=== PATIENT | female | born 1980 | race Caucasian/White ===

== ENCOUNTER 2017-01-31 07:46 | Day surgery (SDC) | payer OTHER ==
[~2017-01-31 07:46] MED LIST: Lactated Ringers 1,000 ML IV SCH; Lidocaine 1%/Sod Bicarbonate in NS 8.4% 1 ML Syringe IV PRN; Sodium Chloride 0.9% 10 ML Syringe FLUSH PRN
[2017-01-31] MEDS ORDERED: Midazolam 1 MG/ML 2 ML SDV ONE ×2 (08:03→10:02)
[2017-01-31] MEDS ORDERED: Ondansetron 4 MG/2 ML SDV ONE (08:03)
[2017-01-31] MEDS ORDERED: Propofol 200 MG/20 ML SDV ONE ×2 (08:03→10:05)
[2017-01-31] MEDS ORDERED: Lidocaine 1% 4 ML ONE (08:04)
[2017-01-31] MEDS ORDERED: fentaNYL 250 MCG/5 ML SDV ONE (08:04)
[2017-01-31] MEDS ORDERED: ceFAZolin 1 GM Vial ONE (08:06)
--- NOTE | 2017-01-31 08:48 | PCM.PREANE ---
Preanesthetic Assessment - Anesthesia/Transfusion/Family Hx Anesthesia History: Prior Anesthesia Without Reaction Family History of Anesthesia Reaction: No Transfusion History: No Prior Transfusion(s) Intubation History: Unknown - Review of Systems General: No Symptoms Pulmonary: No Symptoms (smoke: 1 pack/2days/times 10 plus years.) Cardiovascular: No Symptoms Gastrointestinal: No symptoms Neurological: Headache Other: Reports: Depression, Anxiety - Physical Assessment NPO Status Date: 01/30/17 NPO Status Time: 23:00 Pulse: 79 O2 Sat by Pulse Oximetry: 97 Respiratory Rate: 16 Blood Pressure: 140/83 Temperature: 37.0 C Vital Signs: Last Vital Signs Temp 37.0 C 01/31/17 07:50 Pulse 79 01/31/17 07:50 Resp 16 01/31/17 07:50 BP 140/83 01/31/17 07:50 Pulse Ox 97 01/31/17 07:50 Height: 1.7 m Weight: 67.132 kg ASA Class: 2 Mental Status: Alert & Oriented x3 Airway Class: Mallampati = 2 Dentition: Reports: Normal Dentition, Caries Thyro-Mental Finger Breadths: 3 Mouth Opening Finger Breadths: 3 ROM/Head Extension: Full Lungs: Clear to auscultation, Normal respiratory effort Cardiovascular: Regular Rate, Regular Rhythm, No Murmurs - Lab Values: Laboratory Last Values Urine HCG, Qual Negative (NEGATIVE) 01/31/17 07:54 Above lab noted. - Allergies Allergies/Adverse Reactions: Allergies Allergy/AdvReac Type Severity Reaction Status Date / Time cefaclor [From Ceclor] Allergy Hives Verified 01/31/17 08:33 cephalexin Allergy Hives Verified 01/31/17 08:33 - Anesthesia Plan Pre-Op Medication Ordered: None - Acknowledgements Anesthesia Type Planned: MAC Pt an Appropriate Candidate for the Planned Anesthesia: Yes Alternatives and Risks of Anesthesia Discussed w Pt/Guardian: Yes Pt/Guardian Understands and Agrees with Anesthesia Plan: Yes PreAnesthesia Questionnaire - Past Health History Medical/Surgical History: Denies Medical/Surgical History HEENT History: Reports: Impaired Vision, Other (See Below) Other HEENT History: glasses Cardiovascular History: Reports: None Respiratory History: Reports: None Gastrointestinal History: Reports: None Genitourinary History: Reports: None BLACK BELT History: Reports: 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, Fibroids, Other (See Below) Other OB/BYN History: dysmenorrhea, irregular menses, pelvic pain, endometrial polyp, pelvic pain Musculoskeletal History: Reports: None Neurological History: Reports: None Psychiatric History: Reports: Depression Endocrine/Metabolic History: Reports: None Hematologic History: Reports: None Immunologic History: Reports: None Oncologic (Cancer) History: Reports: None Dermatologic History: Reports: None - Past Surgical History Head Surgeries/Procedures: Reports: None HEENT Surgical History: Reports: Tonsillectomy Female Surgical History: Reports: D&C - SUBSTANCE USE Smoking Status *Q: Never Smoker Second Hand Smoke Exposure: No Days Per Week of Alcohol Use: 0 Recreational Drug Use History: No - HOME MEDS Home Medications: Home Meds Vitamin B Complex 1 tab PO DAILY 07/06/16 [History] Cholecalciferol (Vitamin D3) [Vitamin D] 5,000 mg PO DAILY 01/28/17 [History] Norgestrel-Ethinyl Estradiol [Ogestrel Tablet] 1 tab PO DAILY 01/28/17 [History] - CURRENT (IN HOUSE) MEDS Current Meds: Current Medications Lactated Ringer's (Ringers, Lactated) 1,000 mls @ 125 mls/hr IV ASDIRECTED ZAINA Last Admin: 01/31/17 08:24 Dose: 125 mls/hr Lidocaine/Sodium Bicarbonate (Buffered Lidocaine 1% In Ns 8.4%) 0.25 ml IV ONETIME PRN PRN Reason: Prior to IV Start Sodium Chloride (Saline Flush) 10 ml FLUSH ASDIRECTED PRN PRN Reason: Keep Vein Open Discontinued Medications Cefazolin Sodium (Ancef) Confirm Administered Dose 2 gm .ROUTE .STK-MED ONE Stop: 01/31/17 08:07 Fentanyl (Sublimaze) Confirm Administered Dose 250 mcg .ROUTE .STK-MED ONE Stop: 01/31/17 08:05 Lidocaine HCl (Xylocaine-Mpf 1%) Confirm Administered Dose 4 mls @ as directed .ROUTE .STK-MED ONE Stop: 01/31/17 08:05 Midazolam HCl (Versed 1 Mg/Ml) Confirm Administered Dose 2 mg .ROUTE .STK-MED ONE Stop: 01/31/17 08:04 Ondansetron HCl (Zofran) Confirm Administered Dose 4 mg .ROUTE .STK-MED ONE Stop: 01/31/17 08:04 Propofol (Diprivan 20 Ml) Confirm Administered Dose 200 mg .ROUTE .[facility] ONE Stop: 01/31/17 08:04
[2017-01-31] MEDS ORDERED: Lidocaine 1% with EPINEPHrine 1:100,000 20 ML MDV ONE (09:28)
[2017-01-31] MEDS ORDERED: Bupivacaine 0.5%/EPINEPHrine 1:200,000 50 ML MDV ONE (09:28)
[2017-01-31] MEDS ORDERED: Clindamycin Phosphate 900 MG in Sodium Chloride 0.9% 100 ML IV SCH (09:30)
[2017-01-31] MEDS ORDERED: Ketamine 500 mg/10 ML MDV ONE (09:59)
[2017-01-31] MEDS ORDERED: Ondansetron 4 MG/2 ML SDV IVPUSH PRN (10:11)
[2017-01-31] MEDS ORDERED: fentaNYL 100 MCG/2 ML SDV IVPUSH PRN (10:11)
[2017-01-31] MEDS ORDERED: HYDROmorphone 0.5 MG/0.5 ML Syringe IVPUSH PRN (10:11)
[2017-01-31] MEDS ORDERED: Lactated Ringers 1,000 ML ONE (10:19)
--- NOTE | 2017-01-31 10:34 | PCM48HPAN ---
Post Anesthesia Note - EVALUATION WITHIN 48HRS OF ANESTHETIC Vital Signs in Normal Range: Yes Patient Participated in Evaluation: Yes Respiratory Function Stable: Yes Airway Patent: Yes Cardiovascular Function Stable: Yes Hydration Status Stable: Yes Pain Control Satisfactory: Yes Nausea and Vomiting Control Satisfactory: Yes Mental Status Recovered: Yes
--- NOTE | 2017-01-31 10:48 | PCM.OPNOTE ---
- General Post-Op/Procedure Note Date of Surgery/Procedure: 01/31/17 Operative Procedure(s): excision right axillary skin and subcutaneously Findings: 1 cm, skin cyst, with surrounding chronic inflammatory changes of the subcutaneous tissue Pre Op Diagnosis: right axillary lump Post-Op Diagnosis: chronically inflamed skin cyst Anesthesia Technique: Local, MAC, Moderate sedation Primary Surgeon: Enoch Ziegler Pathology: 1 cm, cyst with scar, inflammatory tissue EBL in mLs: 2 Complications: None Condition: Good Free Text/Narrative:: After adequate IV sedation and analgesia was obtained the patient was placed in the supine position with her arm abducted. The right axilla was prepped and draped sterilely for the procedure. 3 cc of local analgesia was infiltrated into the skin and subcutaneous tissues. A 2 cm linear incision was made, centered over the lump. Flaps were raised superiorly and inferiorly. I entered the cyst and serous fluid emerged. I used iris scissors to separate the cyst from the skin and surrounding subcutaneous tissue, which was scarred from chronic inflammation. The specimen was removed. Hemostasis was obtained with cautery. The subcutaneous tissue layer was closed with a running 3-0 Vicryl. The skin was closed with running 4-0 subcuticular Vicryl. Dermabond was used for the dressing.
[2017-01-31 11:36] VITALS: BP 121/78
== END 2017-01-31 11:36 | disposition home or self-care (01) ==
LOC: JD.SDS 07:46
PROVIDERS: ATTEND Surgery
PROC: 0JBG0ZZ Excision of Right Lower Arm Subcutaneous Tissue and Fascia, Open Approach (ICD-10-PCS; principal; 2017-01-31)
DX: L98.8 Other specified disorders of the skin and subcutaneous tissue (principal); L02.411 Cutaneous abscess of right axilla; Z87.891 Personal history of nicotine dependence; Z90.89 Acquired absence of other organs; Z88.1 Allergy status to other antibiotic agents; Z79.899 Other long term (current) drug therapy
CPT/HCPCS: 11402; 81025; 88304; J2250; J2405; J3010; J7030; J7120; 00400; J0690; J2704

== ENCOUNTER 2018-12-17 15:22 | Emergency (ER) | payer SELFPAY ==
[2018-12-17 15:46] VITALS: BP 143/92
[2018-12-17] MEDS ORDERED: Acetaminophen/HYDROcodone 325-5 MG Tab PO ONE (16:34)
--- NOTE | 2018-12-17 16:36 | EDM.PDOC ---
ED HPI GENERAL MEDICAL PROBLEM - General Chief Complaint: Lower Extremity Injury/Pain Stated Complaint: SLIPPED DOWNSTAIRS AND INJURIED LEFT ANKLE Time Seen by Provider: 12/17/18 16:18 Source of Information: Reports: Patient History Limitations: Reports: No Limitations - History of Present Illness INITIAL COMMENTS - FREE TEXT/NARRATIVE: Patient is a 38-year-old female who presents the ED complaining of left ankle pain with swelling. Patient states she was walking down a set of stairs and slipped. Her left ankle was bent awkwardly behind her. Since then she developed swelling and inability to weight-bear. This occurred at approximately 1:30. He denies hitting her head or injuring her back or neck. She denies any pain to her knee. There's been no prior history of injury to left ankle. There is no sensation changes noted. She has not taken any medications for the pain. She presents to the ED utilizing crutches. Left Feet Pain Score (Numeric/FACES): 8 - Related Data Allergies Allergy/AdvReac Type Severity Reaction Status Date / Time cefaclor [From Ceclor] Allergy Hives Verified 01/31/17 08:33 cephalexin Allergy Hives Verified 01/31/17 08:33 Home Meds: Home Meds Vitamin B Complex 1 tab PO DAILY 07/06/16 [History] Cholecalciferol (Vitamin D3) [Vitamin D] 5,000 mg PO DAILY 01/28/17 [History] Acetaminophen/HYDROcodone [Omro 325-5 MG] 1 tab PO Q6H PRN #12 tablet 12/17/18 [Rx] Past Medical History - Past Health History Medical/Surgical History: Denies Medical/Surgical History HEENT History: Reports: Impaired Vision, Other (See Below) Other HEENT History: glasses Cardiovascular History: Reports: None Respiratory History: Reports: None Gastrointestinal History: Reports: None Genitourinary History: Reports: None 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: Reports: 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, Fibroids, Other (See Below) 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: dysmenorrhea, irregular menses, pelvic pain, endometrial polyp, pelvic pain Musculoskeletal History: Reports: None Neurological History: Reports: None Psychiatric History: Reports: Depression Endocrine/Metabolic History: Reports: None Hematologic History: Reports: None Immunologic History: Reports: None Oncologic (Cancer) History: Reports: None Dermatologic History: Reports: None - Past Surgical History Head Surgeries/Procedures: Reports: None HEENT Surgical History: Reports: Tonsillectomy, Other (See Below) Other HEENT Surgeries/Procedures: fractured nose Female Surgical History: Reports: D&C Social & Family History - Tobacco Use Smoking Status *Q: Current Every Day Smoker Years of Tobacco use: 20 Packs/Tins Daily: 0.5 - Caffeine Use Caffeine Use: Reports: Coffee, Soda - Recreational Drug Use Recreational Drug Use: No Review of Systems - Review of Systems Review Of Systems: ROS reveals no pertinent complaints other than HPI. ED EXAM, GENERAL - Physical Exam Exam: See Below Exam Limited By: No Limitations General Appearance: Alert, WD/WN, No Apparent Distress Ears: Hearing Grossly Normal Nose: Normal Inspection Throat/Mouth: Normal Voice, No Airway Compromise Neck: Normal Inspection, Supple Respiratory/Chest: No Respiratory Distress, Lungs Clear, Normal Breath Sounds, No Accessory Muscle Use Cardiovascular: Normal Peripheral Pulses, Regular Rate, Rhythm, No Murmur Peripheral Pulses: 2+: Posterior Tibial (L) Extremities: Limited Range of Motion, Other (Swelling noted along the distal third of the fibula with increased pain with palpation and also with any type of movement of the ankle. No pain along the metatarsals or phalanges. No pain along the proximal fibula or tibia. No pain to the knee with palpation as well.) Neurological: Alert, Oriented, CN II-XII Intact, Normal Cognition Psychiatric: Normal Affect, Normal Mood Skin Exam: Warm, Dry, Intact, Normal Color, No Rash ED TRAUMA EXTREMITY PROCEDURES - Splinting Left Lower Extremity Pre-Procedure NV Status: Normal Post-Procedure NV Status: Normal Splint Material: Fiberglass Splint Design: Posterior Applied & Form Fitted By: Provider Provider Post-Splint Application NV Check: NV Status Normal, Good Position Complications: No Course - Vital Signs Last Recorded V/S: Last Vital Signs Temp 98.4 F 12/17/18 15:43 Pulse 99 12/17/18 15:43 Resp 20 12/17/18 15:43 BP 143/92 H 12/17/18 15:43 Pulse Ox 97 12/17/18 15:43 - Orders/Labs/Meds Orders: Active Orders 24 hr Category Date Time Status Ankle Min 3V Lt [CR] Stat Exams 12/17/18 16:34 Taken Meds: Medications Discontinued Medications Generic Name Dose Route Start Last Admin Trade Name Freq PRN Reason Stop Dose Admin Hydrocodone Bitart/Acetaminophen 1 tab 12/17/18 16:34 12/17/18 16:39 Omro 325-5 Mg PO 12/17/18 16:35 1 tab ONETIME ONE Administration - Re-Assessments/Exams Free Text/Narrative Re-Assessment/Exam: Will obtain x-ray of the left ankle. 1 norco 5-325mg PO ordered. X-ray of the left ankle reveals fracture to the distal fibula. Appears to be small fracture and mildly displaced. Otherwise no additional fractures noted. Reviewed with Dr. Saha and he agrees. Final interpretation is pending. Left ankle was splinted with with a posterior splint with medications. Return precautions were discussed with the patient. She had no further questions or concerns. She agreed with plan. Discharge instructions as documented. Departure - Departure Time of Disposition: 17:56 Disposition: Home, Self-Care 01 Condition: Good Clinical Impression: Fracture of fibula Closed left fibular fracture Qualifiers: Encounter type: initial encounter Fibula location: distal Fracture morphology: unspecified fracture morphology Qualified Code(s): S82.832A - Other fracture of upper and lower end of left fibula, initial encounter for closed fracture - Discharge Information Prescriptions: Acetaminophen/HYDROcodone [Omro 325-5 MG] 1 tab PO Q6H PRN #12 tablet PRN Reason: Pain (Severe 7-10) Instructions: Crutch Use, Adult, [id number], Cast or Splint Care, Adult, Easy -to-Read, Tibial and Fibular Fractures Referrals: Sharla Nieto NP [Primary Care Provider] - Jim Abbott MD [Physician] - 1 Week Forms: ED Department Discharge, ED Return to Work/School Form Additional Instructions: You are to be nonweightbearing toe-touch only for balance. Utilize the crutches when ambulating. Elevate when able to reduce any swelling and pain. Apply ice to the affected area 30 minutes in duration, 4 times a day, do not apply ice directly on the skin. May utilize Tylenol and ibuprofen in alternating fashion for aghr-wr-[id number] pain. For severe pain take Omro one tab every [address] while taking the Omro. Do not drive this evening since receiving a sedative medication while in the ED. Call and make an appointment to see Dr. Abbott Orthopedic Surgeon in 7 to 10 days. You can schedule appt tomorrow. Please return to the E.D. if you develop any new or worsening symptoms. - My Orders Last 24 Hours: My Active Orders 12/17/18 16:34 Ankle Min 3V Lt [CR] Stat - Assessment/Plan Last 24 Hours: My Active Orders 12/17/18 16:34 Ankle Min 3V Lt [CR] Stat
--- NOTE | 2018-12-18 07:03 | CR ---
Left ankle: Three views of the left ankle were obtained. Comparison: No prior ankle study. Slightly displaced lateral malleolus fracture is seen. Soft tissue swelling is noted. Minimal plantar spur is seen. Minimal spurring is noted at the attachment of the Achilles tendon to the calcaneus. No additional fracture or other bony abnormality is appreciated. Impression: 1. Slightly displaced lateral malleolus fracture with soft tissue swelling. 2. Other incidental findings. Diagnostic code #3
== END 2018-12-17 18:26 | disposition home or self-care (01) ==
LOC: JD.ED 15:22
DX: S82.832A Other fracture of upper and lower end of left fibula, initial encounter for closed fracture (principal); Z88.1 Allergy status to other antibiotic agents; Z88.8 Allergy status to other drugs, medicaments and biological substances; Z79.899 Other long term (current) drug therapy; F17.210 Nicotine dependence, cigarettes, uncomplicated; W10.9XXA Fall (on) (from) unspecified stairs and steps, initial encounter
CPT/HCPCS: 29515; 73610; 99283; A9270

== ENCOUNTER 2019-12-24 17:05 | Inpatient (IN) | payer OTHER ==
[2019-12-24] MEDS ORDERED: Lactated Ringers 1,000 ML ONE (19:05)
[2019-12-24] MEDS ORDERED: Ondansetron 4 MG/2 ML SDV IVPUSH PRN (19:12)
[2019-12-24] MEDS ORDERED: Nalbuphine 10 MG/ML Syringe IVPUSH PRN (19:12)
[2019-12-24] MEDS ORDERED: Lactated Ringers 1,000 ML IV SCH (19:15)
[2019-12-24] MEDS ORDERED: Oxytocin/Lactated Ringers 10 UNIT/1,000 ML BAG IV SCH ×2 (19:15)
[2019-12-24] MEDS ORDERED: Misoprostol 25 MCG (1/4 of 100 MCG) Tab ONE (19:26)
--- NOTE | 2019-12-24 19:38 | PCM.LDHP ---
L&D History of Present Illness - General Date of Service: 12/24/19 Admit Problem/Dx: Patient Status Order with Admit Dx/Problem 12/24/19 19:09 Patient Status [ADT] Routine Admission Diagnosis/Problem Admission Diagnosis/Problem Source of Information: Patient History Limitations: Reports: No Limitations - History of Present Illness Introduction:: 39-year-old 002 last delivery proximal 13 years ago both deliveries have been vaginal. Patient presented to labor and delivery for induction of labor which was postponed from last week because labor and delivery was full. SIMONE is patient is 40 weeks and 3 days estimated gestational age. . GBS is negative. 05/07/19 blood type A positive antibody screen negative hemoglobin/hematocrit 13.2/38.9 platelets 219,000 rubella immune serology nonreactive urine culture mixed taras suggestive of contamination hepatitis B surface antigen negative HIV negative ECC and chlamydia probe negative initial ultrasound on 05/07/19 gave estimated date of confinement 12/21/2019 at 6 weeks and 4 days estimated gestational age was obtained. Subsequent ultrasound 08/06/19 confirmed SIMONE of 12/21/2019. 10/01/2019 hemoglobin/hematocrit 11.1/34.9 platelets 300,001 hour OB glucose screen 124 serology nonreactive. 11/28/2019 hemoglobin/hematocrit 10.8/34.5 lately 328,000. Group B strep negative. Cervix is 1-2 cm dilated 20% effaced soft posterior cephalic presentation -3 station at 1930 hrs. 25 g of Cytotec placed at the cervical os. Will repeat cytotech at midnight and 0400 hrs. and begin Pitocin at 0800 hrs. Location, : Reports: Uterus Improves with: Reports: None Worsens with: Reports: None Associated Symptoms: Reports: N - Related Data Allergies/Adverse Reactions: Allergies Allergy/AdvReac Type Severity Reaction Status Date / Time cefaclor [From [facility]] Allergy Hives Verified 01/31/17 08:33 cephalexin Allergy Hives Verified 01/31/17 08:33 Home Medications: Home Meds Vitamin B Complex 1 tab PO DAILY 07/06/16 [History] Cholecalciferol (Vitamin D3) [Vitamin D] 5,000 mg PO DAILY 01/28/17 [History] Acetaminophen/HYDROcodone [Davidson 325-5 MG] 1 tab PO Q6H PRN #12 tablet 12/17/18 [Rx] Past Medical History - Past Health History Medical/Surgical History: Denies Medical/Surgical History HEENT History: Reports: Impaired Vision, Other (See Below) Other HEENT History: glasses Cardiovascular History: Reports: None Respiratory History: Reports: None Gastrointestinal History: Reports: None Genitourinary History: Reports: None 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: Reports: 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, 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, Other (See Below) Other OB/BYN History: dysmenorrhea, irregular menses, pelvic pain, endometrial polyp, pelvic pain Musculoskeletal History: Reports: None Neurological History: Reports: None Psychiatric History: Reports: Depression Endocrine/Metabolic History: Reports: None Hematologic History: Reports: None Immunologic History: Reports: None Oncologic (Cancer) History: Reports: None Dermatologic History: Reports: None - Past Surgical History Head Surgeries/Procedures: Reports: None HEENT Surgical History: Reports: Tonsillectomy, Other (See Below) Other HEENT Surgeries/Procedures: fractured nose Female Surgical History: Reports: D&C Social & Family History - Caffeine Use Caffeine Use: Reports: Coffee, Soda H&P Review of Systems - Review of Systems: Review Of Systems: See Below General: Reports: No Symptoms HEENT: Reports: No Symptoms Pulmonary: Reports: No Symptoms Cardiovascular: Reports: No Symptoms Gastrointestinal: Reports: No Symptoms Genitourinary: Reports: No Symptoms Musculoskeletal: Reports: No Symptoms Skin: Reports: No Symptoms Psychiatric: Reports: No Symptoms Neurological: Reports: No Symptoms Hematologic/Lymphatic: Reports: No Symptoms Immunologic: Reports: No Symptoms L&D Exam - Exam Exam: See Below - Vital Signs Weight: 195 lb 11.2 oz - OB Specific Movement: Active Heart Tones: Present (40) Heart Tones per Min: 140 Heart Rate (FHR) Variability: Moderate (6-25 bmp) Presentation: Vertex - Bolden Score Bolden Score Cervix Position: Posterior Bolden Score Consistency: Soft Bolden Score Effacement: 31-50% Bolden Score Dilation: 1-2 cm Bolden Score 's Station: -3 Bolden Score Total: 4 - Exam General: Alert, Oriented HEENT: Conjunctiva Clear, Mucosa Moist & Nags Head, Posterior Pharynx Clear, PERRLA Neck: Supple, Trachea Midline Lungs: Clear to Auscultation, Normal Respiratory Effort Cardiovascular: Regular Rate, Regular Rhythm GI/Abdominal Exam: Normal Bowel Sounds Genitourinary: Normal external exam Back Exam: Normal Inspection, Full Range of Motion Extremities: Normal Inspection, Non-Tender, No Pedal Edema, Normal Capillary Refill Skin: Warm, Dry, Intact Neurological: Reflexes Equal Bilateral Psychiatric: Alert, Normal Affect, Normal Mood - Problem List (1) 40 weeks gestation of SNOMED Code(s): 55140579 ICD Code: Z3A.40 - 40 WEEKS GESTATION OF Status: Acute Current Visit: Yes (2) Advanced maternal age in multigravida SNOMED Code(s): 464600505 ICD Code: O09.529 - SUPERVISION OF ELDERLY MULTIGRAVIDA, UNSPECIFIED TRIMESTER Status: Acute Current Visit: Yes Qualifiers: Trimester: third trimester Qualified Code(s): O09.523 - Supervision of elderly multigravida, third trimester Problem List Initiated/Reviewed/Updated: No Orders Last 24hrs: Active Orders 24 hr Category Date Time Status Patient Status [ADT] Routine ADT 12/24/19 19:09 Active Activity as Tolerated [RC] PFP Care 12/24/19 19:12 Active Communication Order [RC] ASDIRECTED Care 12/24/19 19:09 Active Communication Order [RC] ASDIRECTED Care 12/24/19 19:09 Active Communication Order [RC] ASDIRECTED Care 12/24/19 19:09 Active Communication Order [RC] ASDIRECTED Care 12/24/19 19:12 Active Monitoring [RC] INTERMITTENT Care 12/24/19 19:09 Active Non Stress Test [RC] PER UNIT ROUTINE Care 12/24/19 19:09 Active Notify Provider [RC] ASDIRECTED Care 12/24/19 19:09 Active Notify Provider [RC] PFP Care 12/24/19 19:12 Active Notify Provider [RC] PRN Care 12/24/19 19:12 Active Pump Management, Intrathecal [RC] ASDIRECTED Care 12/24/19 19:13 Active Urinary Catheter Assessment [RC] ASDIRECTED Care 12/24/19 19:12 Active Vaginal Exam [RC] ASDIRECTED Care 12/24/19 19:09 Active Vital Signs [RC] ASDIRECTED Care 12/24/19 19:09 Active Regular Diet [DIET] Diet 12/24/19 Dinner Active CBC WITH AUTO DIFF [HEME] Stat Lab 12/24/19 19:12 Ordered RAPID PLASMA REAGIN,RPR [CHEM] Routine Lab 12/24/19 19:12 Ordered TYPE AND SCREEN [BBK] Routine Lab 12/24/19 19:12 Ordered Lactated Ringers [Ringers, Lactated] 1,000 ml Med 12/24/19 19:15 Active IV ASDIRECTED Lactated Ringers [Ringers, Lactated] 1,000 ml Med 12/24/19 19:15 Active IV ASDIRECTED Nalbuphine [Nubain] Med 12/24/19 19:12 Active 10 mg IVPUSH Q2H PRN Ondansetron [Zofran] Med 12/24/19 19:12 Active 4 mg IVPUSH Q4H PRN Oxytocin/Lactated Ringers [Pitocin in LR 10 Units/1,000 Med 12/24/19 19:15 Active ML] 10 unit in 1,000 ml IV .CONTINUOUS Oxytocin/Lactated Ringers [Pitocin in LR 10 Units/1,000 Med 12/24/19 19:15 Active ML] 10 unit in 1,000 ml IV TITRATE Electronic Heart Tones Internal [WOMSER] Per Unit Oth 12/24/19 19:12 Ordered Routine Peripheral IV Insertion Adult [OM.PC] Routine Oth 12/24/19 19:12 Ordered Resuscitation Status Routine Resus Stat 12/24/19 19:12 Ordered Medication Orders Lactated Ringer's (Ringers, Lactated) 1,000 mls @ 40 mls/hr IV ASDIRECTED ZAINA Lactated Ringer's (Ringers, Lactated) 1,000 mls @ 100 mls/hr IV ASDIRECTED ZAINA Oxytocin/Lactated Ringer's (Pitocin In Lr 10 Units/1,000 Ml) 10 unit in 1,000 mls @ 12 mls/hr IV TITRATE ZAINA; Protocol Oxytocin/Lactated Ringer's (Pitocin In Lr 10 Units/1,000 Ml) 10 unit in 1,000 mls @ 100 mls/hr IV .CONTINUOUS ZAINA Nalbuphine HCl (Nubain) 10 mg IVPUSH Q2H PRN PRN Reason: Pain Ondansetron HCl (Zofran) 4 mg IVPUSH Q4H PRN PRN Reason: Nausea/Vomiting Assessment/Plan Comment:: Plan induction and delivery.
[2019-12-25] MEDS: Misoprostol 25 MCG (1/4 of 100 MCG) Tab VAG SCH ×2 (01:04→05:06)
--- NOTE | 2019-12-25 06:51 | PCM.SN.2 ---
- Free Text/Narrative Note: Amniotomy performed at 0645 hrs. blood-tinged amnionic fluid. Cervix is 3 cm dilated and 50% effaced. heart tones category 1.
[2019-12-25] MEDS ORDERED: Phenylephrine 1 MG in Sodium Chloride 0.9% 10 ML IV SCH (07:30)
[2019-12-25] MEDS ORDERED: Ondansetron 4 MG/2 ML SDV IVPUSH PRN (07:30)
[2019-12-25] MEDS ORDERED: fentaNYL 100 MCG/2 ML SDV EPIDUR PRN (07:30)
[2019-12-25] MEDS ORDERED: ePHEDrine 50 MG/ML SDV IVPUSH PRN ×2 (07:30→19:16)
[2019-12-25] MEDS ORDERED: Bupivacaine/fentaNYL/NS 100 ML Bag EPIDUR SCH (07:30)
--- NOTE | 2019-12-25 07:32 | PCM.PREANE ---
Preanesthetic Assessment - Anesthesia/Transfusion/Family Hx Anesthesia History: Prior Anesthesia Without Reaction Family History of Anesthesia Reaction: No Transfusion History: No Prior Transfusion(s) Intubation History: Unknown - Review of Systems General: No Symptoms Pulmonary: No Symptoms (smoker: 1ppd times 2 days) Cardiovascular: No Symptoms Gastrointestinal: No Symptoms (GERD with ), Constipation (with ) Neurological: Headache (History of migraines) Other: Reports: Depression, Anxiety - Physical Assessment NPO Status Date: 12/25/19 NPO Status Time: 07:30 Vital Signs: Last Vital Signs Temp 36.8 C 12/24/19 20:00 Pulse 105 H 12/24/19 20:00 Resp 18 12/24/19 20:00 BP 135/88 12/24/19 20:00 Pulse Ox Height: 1.75 m Weight: 88.768 kg ASA Class: 2 Mental Status: Alert & Oriented x3 Airway Class: Mallampati = 2 Dentition: Reports: Normal Dentition, Caries Thyro-Mental Finger Breadths: 3 Mouth Opening Finger Breadths: 3 ROM/Head Extension: Full Lungs: Clear to Auscultation, Normal Respiratory Effort Cardiovascular: Regular Rate, Regular Rhythm, No Murmurs - Lab Values: Laboratory Last Values WBC 20.30 K/mm3 (3.98-10.04) H 12/24/19 19:25 RBC 3.98 M/mm3 (3.98-5.22) 12/24/19 19:25 Hgb 11.5 gm/dl (11.2-15.7) 12/24/19 19:25 Hct 35.7 % (34.1-44.9) 12/24/19 19:25 MCV 89.7 fl (79.4-94.8) 12/24/19 19:25 MCH 28.9 pg (25.6-32.2) 12/24/19 19:25 MCHC 32.2 g/dl (32.2-35.5) 12/24/19 19:25 RDW Std Deviation 49.7 fL (36.4-46.3) H 12/24/19 19:25 Plt Count 316 K/mm3 (182-369) 12/24/19 19:25 MPV 11.5 fl (9.4-12.3) 12/24/19 19:25 Neut % (Auto) 76.7 % (34.0-71.1) H 12/24/19 19:25 Lymph % (Auto) 13.8 % (19.3-51.7) L 12/24/19 19:25 [place] % (Auto) 7.7 % (4.7-12.5) 12/24/19 19:25 Eos % (Auto) 0.9 (0.7-5.8) 12/24/19 19: Baso % (Auto) 0.2 % (0.1-1.2) 12/24/19 19:25 Neut # (Auto) 15.55 K/mm3 (1.56-6.13) H 12/24/19 19: Lymph # (Auto) 2.80 K/mm3 (1.18-3.74) 12/24/19 19:25 [place] # (Auto) 1.57 K/mm3 (0.24-0.36) H 12/24/19 19:25 Eos # (Auto) 0.19 K/mm3 (0.04-0.36) 12/24/19 19:25 Baso # (Auto) 0.04 K/mm3 (0.01-0.08) 12/24/19 19:25 Manual Slide Review Abnormal smear 12/24/19 19:25 RPR Non-reactive (NONREACTIVE) 12/24/19 19:25 Blood Type A POSITIVE 12/24/19: Gel Antibody Screen Negative 12/24/19: Above labs reviewed and noted and within acceptable ranges to proceed with epidural if desired. - Allergies Allergies/Adverse Reactions: Allergies Allergy/AdvReac Type Severity Reaction Status Date / Time cefaclor [From [facility]] Allergy Hives Verified 01/31/17 08:33 cephalexin Allergy Hives Verified 01/31/17 08:33 - Anesthesia Plan Pre-Op Medication Ordered: None - Acknowledgements Anesthesia Type Planned: Epidural Pt an Appropriate Candidate for the Planned Anesthesia: Yes Alternatives and Risks of Anesthesia Discussed w Pt/Guardian: Yes Pt/Guardian Understands and Agrees with Anesthesia Plan: Yes PreAnesthesia Questionnaire - Past Health History Medical/Surgical History: Denies Medical/Surgical History HEENT History: Reports: Impaired Vision, Other (See Below) Other HEENT History: glasses Cardiovascular History: Reports: None Respiratory History: Reports: None Gastrointestinal History: Reports: None Genitourinary History: Reports: None 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: Reports: 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, Fibroids, Other (See Below) Other OB/BYN History: dysmenorrhea, irregular menses, pelvic pain, endometrial polyp, pelvic pain Musculoskeletal History: Reports: None Neurological History: Reports: None Psychiatric History: Reports: Depression Endocrine/Metabolic History: Reports: None Hematologic History: Reports: None Immunologic History: Reports: None Oncologic (Cancer) History: Reports: None Dermatologic History: Reports: None - Past Surgical History Head Surgeries/Procedures: Reports: None HEENT Surgical History: Reports: Tonsillectomy, Other (See Below) Other HEENT Surgeries/Procedures: fractured nose Female Surgical History: Reports: D&C - SUBSTANCE USE Smoking Status *Q: Current Every Day Smoker Tobacco Use Within Last Twelve Months: Cigarettes Recreational Drug Use History: No - HOME MEDS Home Medications: Home Meds Vitamin B Complex 1 tab PO DAILY 07/06/16 [History] Cholecalciferol (Vitamin D3) [Vitamin D] 5,000 mg PO DAILY 01/28/17 [History] Ferrous Sulfate [Iron] 325 mg PO DAILY 12/24/19 [History] Prenat 115/Iron Fum/Folic/Dss [ 19 Tablet] 1 tab PO DAILY 12/24/19 [ History] - CURRENT (IN HOUSE) MEDS Current Meds: Current Medications Lactated Ringer's (Ringers, Lactated) 1,000 mls @ 40 mls/hr IV ASDIRECTED ZAINA Lactated Ringer's (Ringers, Lactated) 1,000 mls @ 100 mls/hr IV ASDIRECTED ZAINA Oxytocin/Lactated Ringer's (Pitocin In Lr 10 Units/1,000 Ml) 10 unit in 1,000 mls @ 12 mls/hr IV TITRATE ZAINA; Protocol Oxytocin/Lactated Ringer's (Pitocin In Lr 10 Units/1,000 Ml) 10 unit in 1,000 mls @ 100 mls/hr IV .CONTINUOUS ZAINA Nalbuphine HCl (Nubain) 10 mg IVPUSH Q2H PRN PRN Reason: Pain Ondansetron HCl (Zofran) 4 mg IVPUSH Q4H PRN PRN Reason: Nausea/Vomiting Discontinued Medications Lactated Ringer's (Ringers, Lactated) Confirm Administered Dose 1,000 mls @ as directed .ROUTE .STK-MED ONE Stop: 12/24/19 19:06 Last Admin: 12/24/19 21:41 Dose: Not Given Misoprostol (Cytotec) Confirm Administered Dose 25 mcg .ROUTE .STK-MED ONE Stop: 12/24/19 19:27 Last Admin: 12/24/19 19:30 Dose: 25 mcg Misoprostol (Cytotec) 25 mcg VAG Q4H ZAINA Stop: 12/25/19 04:01 Last Admin: 12/25/19 05:06 Dose: 25 mcg
[2019-12-25] MEDS: Lactated Ringers 1,000 ML IV SCH ×2 (08:34→10:55)
[2019-12-25] MEDS ORDERED: Terbutaline 1 MG/ML SDV ONE (13:45)
[2019-12-25] MEDS ORDERED: Terbutaline 1 MG/ML SDV SUBCUT ONE (13:46)
--- NOTE | 2019-12-25 14:23 | PCM.SN.2 ---
- Free Text/Narrative Note: Developed tachysystole and tachycardia and decreased variability, discontinued pitocin, contractions spaced out and tachycardia resolved and variability now moderate. Cervix at 1415 3-4 cm, 50% effaced, soft, posterior, cephalic presentation. Will restart pitocin at 2 miu/ml. Discussed options with patient and mother. Re-evaluate in one hour. Confirmed cephalic presentation with bedside USG.
--- NOTE | 2019-12-25 15:52 | PCM.SN.2 ---
- Free Text/Narrative Note: Rechecked patient No change in past 90 minutes Discussed with patient and mother and alternatives again discussed Will proceed with section as soon as room available Failure to progress FHT cat I Have discussed with anesthesia Preop antibiotics IV: Gentamycin 445 Clindimycin 900 Azythromycin 500 mg
[2019-12-25] MEDS ORDERED: Bupivacaine 0.5% 30 ML SDV ONE (15:59)
[2019-12-25] MEDS ORDERED: GENTAMICIN IV ONE ×2 (16:00→16:30)
[2019-12-25] MEDS ORDERED: Azithromycin 500 MG in Sodium Chloride 0.9% 250 ML IV ONE (16:00)
[2019-12-25] MEDS ORDERED: SODIUM CHLORIDE 0.9% IV ONE ×2 (16:00→16:30)
[2019-12-25] MEDS: Clindamycin Phosphate in D5W 900 MG in Premix Bag 1 BAG IV ONE ×2 (16:16)
[2019-12-25] MEDS: Citric Acid/Sodium Citrate Solution 30 ML Cup PO ONE ×2 (16:35→16:44)
[2019-12-25] MEDS: Metoclopramide 10 MG/2 ML SDV IVPUSH ONE ×2 (16:35→16:44)
[2019-12-25] MEDS ORDERED: Oxytocin 10 Units/1 ML SDV ONE (16:54)
[2019-12-25] MEDS ORDERED: Lactated Ringers 1,000 ML ONE (16:54)
[2019-12-25] MEDS ORDERED: Morphine PF 1 MG/ML Amp ONE (17:23)
--- NOTE | 2019-12-25 17:49 | PCM.OPNOTE ---
- General Post-Op/Procedure Note Date of Surgery/Procedure: 12/25/19 Operative Procedure(s): Low segment transverse primary Pre Op Diagnosis: 40 weeks 3 days estimated gestational age, advanced maternal age, failure to progress Post-Op Diagnosis: Name plus meconium-stained amniotic fluid, nuchal cord x1 Anesthesia Technique: Epidural Primary Surgeon: Panfilo Jarrett Secondary Surgeon: Amor Pena Anesthesia Provider: David Blanco Reason Anesthesia Technician Was Necessary: Decrease comorbidity and mortality retraction assist in surgery Role of Anesthesia Technician: Decrease comorbidity and mortality retraction assist in surgery Fluid Replacement, Intraop: 1,700 Output, Urine Amount: 150 EBL in mLs: 400 Drain/Tube Comments:: Quintana catheter Complications: None Condition: Good Free Text/Narrative:: Intake & Output 12/25/19 12/25/19 12/25/19 06:59 14:59 22:59 Intake Total 300 Output Total 1800 Balance 300 -1800 Patient was transported to the operating room #1 placed under epidural anesthesia in the supine position with a wedge of the right hip and right flank. ED is in place and functioning prior to surgery. Patient given gentamicin 445 grams, clindamycin 900 mg, azithromycin 500 mg all IV. Prepared and draped in a sterile fashion. Timeout performed confirming name date of and procedures section. Adequate level of anesthesia was confirmed. Injecting 20 mL of 0.5% Marcaine in the area of planned incision. Patient's mother was brought to the operating room. Pfannenstiel incision was made and carried sharp section taken through the anterior fascia. Peritoneal cavity was entered without difficulty. Carefully incising the lower uterine segment the female liveborn delivered at 1705 hrs. Apgars 8/9 weight 3230 g / 7 pounds 2 ounces. Slight meconium stained amniotic fluid nuchal cord x1 easily reduced prior to delivery. Dr. ruiz rail tractor operator in attendance. Routine cord blood collected. Placenta removed manually. Inspected intact discarded. Endometrial cavity inspected no placental membranes or remnants. Sponge, needle , pack count correct x1 and closure of the uterus. This was closed in 2 layers layer running locking suture of 0 Monocryl second layer horizontal imbricating suture modified Lembert type. The lower uterine segment was evaluated no bleeding. Tubes and ovaries were normal. Clots were cleaned from the gutters cul-de-sac uterus placed into the abdominal cavity. Reinspection of the uterine incision showed no bleeding. Sponge needle pack instrument count correct x2 in the abdominal cavity was closed. Anterior fascia was closed with #1 PDS. Irrigation carried out and subcutaneous tissue. And the skin was closed with subcuticular 3-0 Monocryl Fernando needle. Dermabond Preneo applied. Blood clots were cleaned from the vagina. Patient was transferred to postanesthesia care unit in satisfactory condition. No blood transfusions were required.
[2019-12-25] MEDS ORDERED: Ketorolac 30 MG/ML SDV IVPUSH SCH (18:00)
[2019-12-25] MEDS ORDERED: Sodium Chloride 0.9% 10 ML Syringe FLUSH PRN (19:16)
[2019-12-25] MEDS ORDERED: Dextrose 5%-Lactated Ringers 1,000 ML IV SCH (19:16)
[2019-12-25] MEDS ORDERED: Naloxone 0.4 MG/ML SDV IVPUSH PRN (19:16)
[2019-12-25] MEDS ORDERED: Acetaminophen 325 MG Tab PO PRN (19:16)
[2019-12-25] MEDS ORDERED: Docusate Sodium 100 MG Cap PO PRN (19:16)
[2019-12-25] MEDS ORDERED: Ondansetron 4 MG/2 ML SDV IV PRN (19:16)
[2019-12-25] MEDS ORDERED: diphenhydrAMINE 50 MG/ML SDV IVPUSH PRN (19:16)
[2019-12-25] MEDS ORDERED: Acetaminophen/oxyCODONE 325-5 MG Tab PO PRN ×2 (19:16)
[2019-12-26] MEDS: Simethicone 80 MG Tab.Chew PO SCH ×5 (00:25→22:21)
[2019-12-26] MEDS ORDERED: Ketorolac 30 MG/ML SDV IVPUSH SCH (02:00)
[2019-12-26] MEDS ORDERED: Dextrose 5%-Lactated Ringers 1,000 ML ONE (05:35)
--- NOTE | 2019-12-26 08:02 | PCM48HPAN ---
Post Anesthesia Note - EVALUATION WITHIN 48HRS OF ANESTHETIC Vital Signs in Normal Range: Yes Patient Participated in Evaluation: Yes Respiratory Function Stable: Yes Airway Patent: Yes Cardiovascular Function Stable: Yes Hydration Status Stable: Yes Pain Control Satisfactory: Yes Nausea and Vomiting Control Satisfactory: Yes (nausea and vomit this am after up. feels better now and is eating.) Mental Status Recovered: Yes Vital Signs: Last Vital Signs Temp 98.1 F 12/26/19 05:23 Pulse 93 12/26/19 05:24 Resp 14 12/26/19 07:00 BP 111/65 12/26/19 05:23 Pulse Ox 99 12/26/19 07:00
--- NOTE | 2019-12-26 11:05 | PCM.SN.2 ---
- Free Text/Narrative Note: Afebrile, no cough, abdomen non tender, uterus involuting normally, no heavy vaginal bleeding, no leg cramps. Remove tolliver. HgB 9.7 down from 11.5 preop. No symptoms.
[2019-12-26] MEDS: Clindamycin Phosphate in D5W 900 MG in Premix Bag 1 BAG IV ONE ×2 (11:41)
[2019-12-26] MEDS: Ketorolac 30 MG/ML SDV IVPUSH SCH ×2 (12:17→17:31)
[2019-12-27] MEDS: Ibuprofen 600 MG Tab PO PRN ×2 (00:03→08:41)
[2019-12-27] MEDS: Simethicone 80 MG Tab.Chew PO SCH (08:41)
--- NOTE | 2019-12-27 08:56 | PCM.DCSUM1 ---
Discharge Summary - Hospital Course Free Text/Narrative:: [facility] Post-Op/Procedure Note Patient Name: LIZA MURCIA Date of : 84 Patient Status: Inpatient Attending Provider: Panfilo Jarrett Date: 12/25/19 17:40 Initialization Date: 12/25/19 17:40 - General Post-Op/Procedure Note Date of Surgery/Procedure: 12/25/19 Operative Procedure(s): Low segment transverse primary Pre Op Diagnosis: 40 weeks 3 days estimated gestational age, advanced maternal age, failure to progress Post-Op Diagnosis: Name plus meconium-stained amniotic fluid, nuchal cord x1 Anesthesia Technique: Epidural Primary Surgeon: Panfilo Jarrett Secondary Surgeon: Amor Pena Anesthesia Provider: David Blanco Reason Earth Moving Machine Operator Was Necessary: Decrease comorbidity and mortality retraction assist in surgery Role of Earth Moving Machine Operator: Decrease comorbidity and mortality retraction assist in surgery Fluid Replacement, Intraop: 1,700 Output, Urine Amount: 150 EBL in mLs: 400 Drain/Tube Comments:: Quintana catheter Complications: None Condition: Good Free Text/Narrative:: Intake & Output 12/25/19 12/25/19 12/25/19 06:59 14:59 22:59 Intake Total 300 Output Total 1800 Balance 300 -1800 Patient was transported to the operating room #1 placed under epidural anesthesia in the supine position with a wedge of the right hip and right flank. ED is in place and functioning prior to surgery. Patient given gentamicin 445 grams, clindamycin 900 mg, azithromycin 500 mg all IV. Prepared and draped in a sterile fashion. Timeout performed confirming name date of and procedures section. Adequate level of anesthesia was confirmed. Injecting 20 mL of 0.5% Marcaine in the area of planned incision. Patient's mother was brought to the operating room. Pfannenstiel incision was made and carried sharp section taken through the anterior fascia. Peritoneal cavity was entered without difficulty. Carefully incising the lower uterine segment the female liveborn delivered at 1705 hrs. Apgars 8/9 weight 3230 g / 7 pounds 2 ounces. Slight meconium stained amniotic fluid nuchal cord x1 easily reduced prior to delivery. Dr. ruiz newspaper vendor in attendance. Routine cord blood collected. Placenta removed manually. Inspected intact discarded. Endometrial cavity inspected no placental membranes or remnants. Sponge, needle , pack count correct x1 and closure of the uterus. This was closed in 2 layers layer running locking suture of 0 Monocryl second layer horizontal imbricating suture modified Lembert type. The lower uterine segment was evaluated no bleeding. Tubes and ovaries were normal. Clots were cleaned from the gutters cul-de-sac uterus placed into the abdominal cavity. Reinspection of the uterine incision showed no bleeding. Sponge needle pack instrument count correct x2 in the abdominal cavity was closed. Anterior fascia was closed with #1 PDS. Irrigation carried out and subcutaneous tissue. And the skin was closed with subcuticular 3-0 Monocryl Fernando needle. Dermabond Preneo applied. Blood clots were cleaned from the vagina. Patient was transferred to postanesthesia care unit in satisfactory condition. No blood transfusions were required. HPI Initial Comments: [facility] Post-Op/Procedure Note Patient Name: LIZA MURCIA Date of : 84 Patient Status: Inpatient Attending Provider: Panfilo Jarrett Date: 12/25/19 17:40 Initialization Date: 12/25/19 17:40 - General Post-Op/Procedure Note Date of Surgery/Procedure: 12/25/19 Operative Procedure(s): Low segment transverse primary Pre Op Diagnosis: 40 weeks 3 days estimated gestational age, advanced maternal age, failure to progress Post-Op Diagnosis: Name plus meconium-stained amniotic fluid, nuchal cord x1 Anesthesia Technique: Epidural Primary Surgeon: Panfilo Jarrett Secondary Surgeon: Amor Pena Anesthesia Provider: David Blanco Reason Earth Moving Machine Operator Was Necessary: Decrease comorbidity and mortality retraction assist in surgery Role of Earth Moving Machine Operator: Decrease comorbidity and mortality retraction assist in surgery Fluid Replacement, Intraop: 1,700 Output, Urine Amount: 150 EBL in mLs: 400 Drain/Tube Comments:: Quintana catheter Complications: None Condition: Good Free Text/Narrative:: Intake & Output 12/25/19 12/25/19 12/25/19 06:59 14:59 22:59 Intake Total 300 Output Total 1800 Balance 300 -1800 Patient was transported to the operating room #1 placed under epidural anesthesia in the supine position with a wedge of the right hip and right flank. ED is in place and functioning prior to surgery. Patient given gentamicin 445 grams, clindamycin 900 mg, azithromycin 500 mg all IV. Prepared and draped in a sterile fashion. Timeout performed confirming name date of and procedures section. Adequate level of anesthesia was confirmed. Injecting 20 mL of 0.5% Marcaine in the area of planned incision. Patient's mother was brought to the operating room. Pfannenstiel incision was made and carried sharp section taken through the anterior fascia. Peritoneal cavity was entered without difficulty. Carefully incising the lower uterine segment the female liveborn delivered at 1705 hrs. Apgars 8/9 weight 3230 g / 7 pounds 2 ounces. Slight meconium stained amniotic fluid nuchal cord x1 easily reduced prior to delivery. Dr. ruiz newspaper vendor in attendance. Routine cord blood collected. Placenta removed manually. Inspected intact discarded. Endometrial cavity inspected no placental membranes or remnants. Sponge, needle , pack count correct x1 and closure of the uterus. This was closed in 2 layers layer running locking suture of 0 Monocryl second layer horizontal imbricating suture modified Lembert type. The lower uterine segment was evaluated no bleeding. Tubes and ovaries were normal. Clots were cleaned from the gutters cul-de-sac uterus placed into the abdominal cavity. Reinspection of the uterine incision showed no bleeding. Sponge needle pack instrument count correct x2 in the abdominal cavity was closed. Anterior fascia was closed with #1 PDS. Irrigation carried out and subcutaneous tissue. And the skin was closed with subcuticular 3-0 Monocryl Fernando needle. Dermabond Preneo applied. Blood clots were cleaned from the vagina. Patient was transferred to postanesthesia care unit in satisfactory condition. No blood transfusions were required. Brief History: [facility] . Post-Op/Procedure Note. Patient Name: LIZA MURCIAAKedical Record Number: [id number]. Date of : Patient Status: Inpatient. Attending Provider: Panfilo Jarrettount Number: [id number]. Date: 12/25/19 17:40Initialization Date: 12/25/19 17:40. - General Post-Op/Procedure Note. Date of Surgery/Procedure: 12/25/19. Operative Procedure(s): Low segment transverse primary. Pre Op Diagnosis: 40 weeks 3 days estimated gestational age, advanced maternal age, failure to progress. Post-Op Diagnosis: Name plus meconium-stained amniotic fluid, nuchal cord x1. Anesthesia Technique: Epidural. Primary Surgeon: Panfilo Jarrett. Secondary Surgeon: Amor Pena. Anesthesia Provider: David Blanco. Reason Earth Moving Machine Operator Was Necessary: Decrease comorbidity and mortality retraction assist in surgery. Role of Earth Moving Machine Operator: Decrease comorbidity and mortality retraction assist in surgery. Fluid Replacement, Intraop: 1,700. Output, Urine Amount: 150. EBL in mLs: 400. Drain/Tube Comments:: Quintana catheter. Complications: None. Condition: Good. Free Text/ Narrative:: Intake & Output. 12/24/2004/12/2004. 06:5914:[id number]:[id number]. Intake [id number]. Output [id number]. [id number]. Patient was transported to the operating room #1 placed under epidural anesthesia in the supine position with a wedge of the right hip and right flank. ED is in place and functioning prior to surgery. Patient given gentamicin 445 grams, clindamycin 900 mg, azithromycin 500 mg all IV. Prepared and draped in a sterile fashion. Timeout performed confirming name date of and procedures section. Adequate level of anesthesia was confirmed. Injecting 20 mL of 0.5% Marcaine in the area of planned incision. Patient's mother was brought to the operating room. Pfannenstiel incision was made and carried sharp section taken through the anterior fascia. Peritoneal cavity was entered without difficulty. Carefully incising the lower uterine segment the female liveborn delivered at 1705 hrs. Apgars 8/9 weight 3230 g / 7 pounds 2 ounces. Slight meconium stained amniotic fluid nuchal cord x1 easily reduced prior to delivery. Dr. ruiz newspaper vendor in attendance. Routine cord blood collected. Placenta removed manually. Inspected intact discarded. Endometrial cavity inspected no placental membranes or remnants. Sponge, needle, pack count correct x1 and closure of the uterus. This was closed in 2 layers layer running locking suture of 0 Monocryl second layer horizontal imbricating suture modified Lembert type. The lower uterine segment was evaluated no bleeding. Tubes and ovaries were normal. Clots were cleaned from the gutters cul-de-sac uterus placed into the abdominal cavity. Reinspection of the uterine incision showed no bleeding. Sponge needle pack instrument count correct x2 in the abdominal cavity was closed. Anterior fascia was closed with #1 PDS. Irrigation carried out and subcutaneous tissue. And the skin was closed with subcuticular 3-0 Monocryl Fernando needle. Dermabond Preneo applied. Blood clots were cleaned from the vagina. Patient was transferred to postanesthesia care unit in satisfactory condition. No blood transfusions were required. Diagnosis: Stroke: No - Discharge Data Discharge Date: 12/27/19 Discharge Disposition: Home, Self-Care 01 Condition: Good - Referral to Home Health Primary Care Physician: Panfilo Jarrett MD - Discharge Diagnosis/Problem(s) (1) 40 weeks gestation of SNOMED Code(s): 12640498 ICD Code: Z3A.40 - 40 WEEKS GESTATION OF Status: Acute Current Visit: Yes (2) Advanced maternal age in multigravida SNOMED Code(s): 087135234 ICD Code: O09.529 - SUPERVISION OF ELDERLY MULTIGRAVIDA, UNSPECIFIED TRIMESTER Status: Acute Current Visit: Yes Qualifiers: Trimester: third trimester Qualified Code(s): O09.523 - Supervision of elderly multigravida, third trimester (3) Failure of descent in labor, delivered, current hospitalization SNOMED Code(s): 785071762, 546576605 ICD Code: O62.2 - OTHER UTERINE INERTIA Status: Acute Current Visit: Yes (4) Meconium stained amniotic fluid, delivered, current hospitalization SNOMED Code(s): 715960052, 522790856 ICD Code: O77.0 - LABOR AND DELIVERY COMPLICATED BY MECONIUM IN AMNIOTIC FLUID Status: Acute Current Visit: Yes (5) Nuchal cord, delivered, current hospitalization SNOMED Code(s): 747422037, 024646326 ICD Code: O69.81X0 - LABOR AND DEL COMP BY CORD AROUND NECK, W/O COMPRSN, UNSP Status: Acute Current Visit: Yes - Patient Summary/Data Operative Procedure(s) Performed: Low segment transverse primary Complications: None Consults: None Hospital Course: Uneventful - Patient Instructions Diet: Usual Diet as Tolerated Driving: Do Not Drive (2 weeks) Showering/Bathing: May Shower, No Tub Bathing/Swimming (6 weeks) Wound/Incision Care: Keep Operative Site/Wound Site Clean and Dry Notify Provider of: Fever, Increased Pain, Swelling and Redness, Drainage, Nausea and/or Vomiting - Discharge Plan *PRESCRIPTION DRUG MONITORING PROGRAM REVIEWED*: Not Applicable *COPY OF PRESCRIPTION DRUG MONITORING REPORT IN PATIENT SILVERIO: Not Applicable Home Medications: Home Meds Vitamin B Complex 1 tab PO DAILY 07/06/16 [History] Cholecalciferol (Vitamin D3) [Vitamin D] 5,000 mg PO DAILY 01/28/17 [History] Ferrous Sulfate [Iron] 325 mg PO DAILY 12/24/19 [History] Prenat 115/Iron Fum/Folic/Dss [ 19 Tablet] 1 tab PO DAILY 12/24/19 [ History] Acetaminophen [Tylenol] 650 mg PO Q6H PRN tablet 12/27/19 [Rx] Docusate Sodium [Colace] 100 mg PO Q12H PRN cap 12/27/19 [Rx] Ibuprofen [Motrin] 600 mg PO Q6H PRN tablet 12/27/19 [Rx] Simethicone 80 mg PO PCBED tab.chew 12/27/19 [Rx] Patient Handouts: Steps to Quit Smoking Referrals: Panfilo Jarrett MD [Primary Care Provider] - (Patient to make an appointment to see me on 01/08/2020 /postop visit) - Discharge Summary/Plan Comment DC Time >30 min.: No - Patient Data Vitals - Most Recent: Last Vital Signs Temp 98.2 F 12/27/19 03:21 Pulse 78 12/27/19 03:21 Resp 15 12/27/19 03:21 BP 114/61 12/27/19 03:21 Pulse Ox 97 12/27/19 03:21 Weight - Most Recent: 195 lb 11.2 oz I&O - Last 24 hours: Intake & Output 12/26/19 12/27/19 12/27/19 22:59 06:59 14:59 Intake Total 1000 Output Total 950 Balance 50 Med Orders - Current: Current Medications Acetaminophen (Tylenol) 650 mg PO Q4H PRN PRN Reason: mild pain or fever Diphenhydramine HCl (Benadryl) 25 mg IVPUSH Q6H PRN PRN Reason: Itching or Nausea Docusate Sodium (Colace) 100 mg PO Q12H PRN PRN Reason: Constipation Ephedrine Sulfate (Ephedrine Sulfate) 5 mg IVPUSH SEECOMMENT PRN PRN Reason: Other Ibuprofen (Motrin) 600 mg PO Q6H PRN PRN Reason: mild pain or fever Last Admin: 12/27/19 08:41 Dose: 600 mg Naloxone HCl (Narcan) 0.1 mg IVPUSH SEECOMMENT PRN PRN Reason: Respiratory Depression Ondansetron HCl (Zofran) 4 mg IV Q8H PRN PRN Reason: Nausea/Vomiting Last Admin: 12/26/19 05:46 Dose: 4 mg Oxycodone/Acetaminophen (Percocet 325-5 Mg) 1 tab PO Q4H PRN PRN Reason: Pain (moderate 4-6) Oxycodone/Acetaminophen (Percocet 325-5 Mg) 2 tab PO Q4H PRN PRN Reason: Pain (severe 7-10) Simethicone (Simethicone) 80 mg PO PCBED [facility] Last Admin: 12/27/19 08:41 Dose: 80 mg Sodium Chloride (Saline Flush) 10 ml FLUSH ASDIRECTED PRN PRN Reason: Keep Vein Open Discontinued Medications Bupivacaine HCl (Marcaine 0.5%) Confirm Administered Dose 30 ml .ROUTE .[employer] ONE Stop: 12/25/19 16:00 Last Admin: 12/25/19 17:01 Dose: 20 ml Citric Acid/Sodium Citrate (Bicitra Solution) 30 ml PO ONETIME ONE Stop: 12/25/19 16:12 Last Admin: 12/25/19 16:44 Dose: 30 ml Ephedrine Sulfate (Ephedrine Sulfate) 5 mg IVPUSH ASDIRECTED PRN PRN Reason: Hypotension Fentanyl (Sublimaze) 100 mcg EPIDUR Q3H PRN PRN Reason: Pain Last Admin: 12/25/19 10:54 Dose: 100 mcg Fentanyl/Bupivacaine HCl (Fentanyl/Bupivacaine/Ns 2 Mcg-0.125% 100 Ml) 100 ml EPIDUR ASDIRECTED [facility] Last Admin: 12/25/19 10:55 Dose: 100 ml Lactated Ringer's (Ringers, Lactated) Confirm Administered Dose 1,000 mls @ as directed .ROUTE .[employer] ONE Stop: 12/24/19 19:06 Last Admin: 12/24/19 21:41 Dose: Not Given Lactated Ringer's (Ringers, Lactated) 1,000 mls @ 40 mls/hr IV ASDIRECTED ZAIN[facility] Last Admin: 12/25/19 10:55 Dose: 40 mls/hr Lactated Ringer's (Ringers, Lactated) 1,000 mls @ 100 mls/hr IV ASDIRECTED ZAINA Last Admin: 12/25/19 18:50 Dose: 100 mls/hr Oxytocin/Lactated Ringer's (Pitocin In Lr 10 Units/1,000 Ml) 10 unit in 1,000 mls @ 12 mls/hr IV TITRATE ZAINA; Protocol Last Titration: 12/25/19 14:57 Dose: 2 munits/min, 12 mls/hr Oxytocin/Lactated Ringer's (Pitocin In Lr 10 Units/1,000 Ml) 10 unit in 1,000 mls @ 100 mls/hr IV .CONTINUOUS ZAINA Phenylephrine HCl 1 mg/ Sodium (Chloride) 10.1 mls @ 1 mls/sec IV TITRATE ZAINA; Protocol Clindamycin Phosphate 900 mg/ (Premix) 50 mls @ 100 mls/hr IV ONETIME ONE Stop: 12/25/19 16:29 Last Admin: 12/26/19 11:41 Dose: Not Given Azithromycin 500 mg/ Sodium (Chloride) 250 mls @ 125 mls/hr IV ONETIME ONE Stop: 12/25/19 17:59 Last Admin: 12/26/19 11:41 Dose: Not Given Gentamicin Sulfate 445 mg/ (Sodium Chloride) 111.125 mls @ 111.125 mls/hr IV ONETIME ONE Stop: 12/25/19 17:29 Last Admin: 12/26/19 11:41 Dose: Not Given Lactated Ringer's (Ringers, Lactated) Confirm Administered Dose 1,000 mls @ as directed .ROUTE .[employer] ONE Stop: 12/25/19 16:55 Dextrose/Lactated Ringer's (Dextrose 5%-Lactated Ringers) 1,000 mls @ 125 mls/ hr IV ASDIRECTED [facility]A Stop: 12/26/19 03:15 Last Admin: 12/26/19 05:50 Dose: 125 mls/hr Dextrose/Lactated Ringer's (Dextrose 5%-Lactated Ringers) Confirm Administered Dose 1,000 mls @ as directed .ROUTE .[employer] ONE Stop: 12/26/19 05:36 Last Admin: 12/26/19 07:40 Dose: Not Given Ketorolac Tromethamine (Toradol) 30 mg IVPUSH ONETIME [facility] Last Admin: 12/25/19 18:09 Dose: 30 mg Ketorolac Tromethamine (Toradol) 30 mg IVPUSH Q6H [facility] Stop: 12/26/19 14:01 Last Admin: 12/26/19 05:46 Dose: 30 mg Ketorolac Tromethamine (Toradol) 30 mg IVPUSH Q6H [facility] Stop: 12/26/19 18:01 Last Admin: 12/26/19 17:31 Dose: 30 mg Metoclopramide HCl (Reglan) 10 mg IVPUSH ONETIME ONE Stop: 12/25/19 16:11 Last Admin: 12/25/19 16:44 Dose: Not Given Miscellaneous Medication (Phenylephrine 1 Mg/10 Ml-Ns) Confirm Administered Dose 1 mg IV .STK-MED ONE Stop: 12/25/19 17:21 Misoprostol (Cytotec) Confirm Administered Dose 25 mcg .ROUTE .STK-MED ONE Stop: 12/24/19 19:27 Last Admin: 12/24/19 19:30 Dose: 25 mcg Misoprostol (Cytotec) 25 mcg VAG Q4H [facility] Stop: 12/25/19 04:01 Last Admin: 12/25/19 05:06 Dose: 25 mcg Morphine Sulfate (Duramorph Pf) Confirm Administered Dose 1 mg .ROUTE .STK-MED ONE Stop: 12/25/19 17:24 Nalbuphine HCl (Nubain) 10 mg IVPUSH Q2H PRN PRN Reason: Pain Ondansetron HCl (Zofran) 4 mg IVPUSH Q4H PRN PRN Reason: Nausea/Vomiting Ondansetron HCl (Zofran) 4 mg IVPUSH ONETIME PRN PRN Reason: Nausea/Vomiting Last Admin: 12/25/19 17:42 Dose: 4 mg Oxytocin (Pitocin) Confirm Administered Dose 20 unit .ROUTE .STK-MED ONE Stop: 12/25/19 16:55 Terbutaline Sulfate (Brethine) 0.25 mg SUBCUT ONETIME ONE Stop: 12/25/19 13:47 Last Admin: 12/26/19 11:41 Dose: Not Given Terbutaline Sulfate (Brethine) Confirm Administered Dose 1 mg .ROUTE .[facility] ONE Stop: 12/25/19 13:46 Last Admin: 12/26/19 11:41 Dose: Not Given
[2019-12-27 11:13] VITALS: BP 120/63; PULSE 84
== END 2019-12-27 13:45 | disposition home or self-care (01) | DRG 788 ==
LOC: JD.OB 17:05 → OBSVTOIN 12-25 17:05 → JD.OB 12-25 17:06
PROVIDERS: ADMIT Obstetrics & Gynecology; ATTEND Obstetrics & Gynecology
PROC: 10D00Z1 Extraction of Products of Conception, Low, Open Approach (ICD-10-PCS; principal; 2019-12-25)
PROC: 3E0R3BZ Introduction of Anesthetic Agent into Spinal Canal, Percutaneous Approach (ICD-10-PCS; 2019-12-25)
DX: O48.0 Post-term pregnancy (principal); O62.2 Other uterine inertia; O77.0 Labor and delivery complicated by meconium in amniotic fluid; O69.81X0 Labor and delivery complicated by cord around neck, without compression, not applicable or unspecified; Z37.0 Single live birth; Z3A.40 40 weeks gestation of pregnancy; Z88.1 Allergy status to other antibiotic agents; Z79.899 Other long term (current) drug therapy
CPT/HCPCS: 36415; 51702; 59025; 85025; 86592; 86850; 86900; 86901; A9270-GY; J1580; J1885; J2274; J2370; J2405; J2590; J2765; J3010; J3490; J7050; J7120; J7121